=== PATIENT | female | born 1950 ===

== ENCOUNTER 2025-01-23 05:18 | Day surgery (SDC) | payer OTHER ==
[2025-01-18 12:43] VITALS: BP 134/77
[~2025-01-23] VITALS: Ht 152.4 cm; Wt 66.2 kg
[~2025-01-23 05:18] MED LIST: GLUMETZA500 MG PO; TOPROL XL50 M1 PO; ZESTRIL20 MG PO
[2025-01-23] MEDS ORDERED: POVIDONE-IODINE 118 ML BOTT TOP ONE (07:05)
[2025-01-23] MEDS ORDERED: IBU600 MG PO (08:28)
== END 2025-01-23 12:25 | disposition home or self-care (01) ==
LOC: CIR.AMB 05:18
PROVIDERS: ATTEND Obstetrics & Gynecology Gynecology
DX: N84.0 Polyp of corpus uteri (principal); E11.9 Type 2 diabetes mellitus without complications; I10 Essential (primary) hypertension; E78.00 Pure hypercholesterolemia, unspecified; M19.90 Unspecified osteoarthritis, unspecified site